=== PATIENT | male | born 1975 | race Caucasian/White ===

== ENCOUNTER 2024-06-21 10:35 | Emergency (ER) | payer OTHER, BC ==
[~2024-06-21] VITALS: Ht 175.2 cm; Wt 113.4 kg
[~2024-06-21 10:35] MED LIST: ANUSOL-HC25 MG R; COLACE100 MG PO; HYDROCODONE BIT1 T11 PO; MIRALAX POWDER255 GM PO; NKHM PO; PERCOCET 325 MG1 TA2 PO; SILVADENE1% TP
[2024-06-21] MEDS ORDERED: SYNJARDY PO (10:55)
[2024-06-21] MEDS ORDERED: RYBELSUS14 MG PO (10:55)
[2024-06-21] MEDS ORDERED: OMEPRAZOLE MAGN20 MG PO (10:55)
[2024-06-21] MEDS ORDERED: PRAVASTATIN SOD40 MG PO (10:56)
[2024-06-21] MEDS ORDERED: VITAMIN D350 MCG PO (10:56)
[2024-06-21] MEDS ORDERED: Acetaminophen/Oxycodone 5 MG/325 MG TABLET PO ONE (11:05)
[2024-06-21] MEDS ORDERED: TRAMADOL HCL50 MG PO (14:12)
== END 2024-06-21 14:14 | disposition home or self-care (01) ==
LOC: ED 10:35
DX: S82.401A Unspecified fracture of shaft of right fibula, initial encounter for closed fracture (principal); S92.351A Displaced fracture of fifth metatarsal bone, right foot, initial encounter for closed fracture; E11.9 Type 2 diabetes mellitus without complications; E78.5 Hyperlipidemia, unspecified; Z98.890 Other specified postprocedural states; X50.1XXA Overexertion from prolonged static or awkward postures, initial encounter; Y93.89 Activity, other specified; Y92.89 Other specified places as the place of occurrence of the external cause; Y99.0 Civilian activity done for income or pay